=== PATIENT | male | born 1970 | race Caucasian/White ===

== ENCOUNTER 2023-06-18 08:52 | Outpatient (CLI) | payer MEDICARE, SELFPAY ==
--- NOTE | 2023-06-18 10:05 | W.ANESCHARGE ---
Anesthesia Charges Start Date/Time Anesthesia Start Date: 06/18/23 Anesthesia Start Time: 09:30 Stop Date/Time Anesthesia Stop Date: 06/18/23 Anesthesia Stop Time: 10:02
--- NOTE | 2023-06-18 11:44 | W.ANESCHARGE ---
Anesthesia Charges Start Date/Time Anesthesia Start Date: 06/18/23 Anesthesia Start Time: 09:30 Stop Date/Time Anesthesia Stop Date: 06/18/23 Anesthesia Stop Time: 10:02
== END 2023-06-18 08:53 | disposition home or self-care (01) ==
PROVIDERS: PCP Family Medicine; Visit Provider Internal Medicine Gastroenterology
DX: Z12.11 Encounter for screening for malignant neoplasm of colon (principal); K51.50 Left sided colitis without complications
CPT/HCPCS: 00811; 45380; 88305; J2704

== ENCOUNTER 2024-10-14 10:48 | Emergency (ER) | payer OTHER, SELFPAY ==
--- OUTSIDE RECORDS SUMMARY | 2024-10-14 10:51 | XMS_ITS ---
Author Organization [facility] Care Team Providers Care Treadle Cut Off Saw Operator Name Role Phone Olimpia Gaston Unavailable Unavailable Alexi CAR, [facility] Unavailable Unavailable Luis Fernández Unavailable Unavailable Haydee Dudley Unavailable Unavailable Allergies and adverse reactions Code CodeSystem Substance Reaction Severity StartDate Concern Status 72405 RXNORM Lisinopril Unknown 10/22/2018 active Care Team Name Role Address Phone Organization Dates [facility]limpia Gaston [facility] [address] [place] [address], [id number], [place] (Office): [facility] 10/23/2018 - 12/27/2018 [facility] Alexi CAR [place] (Office): [facility] 10/23/2018 - 12/27/2018 Luis Fernández [address], [address], [facility] (Office): : [facility] 10/23/2018 - 12/27/2018 Haydee Dudley [facility] [address] [facility], [place], [address], [place] (Office): [facility] 10/23/2018 - 12/27/2018 Goals Section Goals Description Status Target Date Ability to plan and go on a trip into the community using accessible public transportation. Active 01/28/2019 Adequate hydration, 8-10 glasses of fluid daily Active 01/28/2019 Adhere to prescribed diet Active 2018 Awareness of 7 community leisure resources of in [facility]. Active 01/28/2019 Client will allow staff to perform procedure as ordered/ needed Active 01/28/2019 Client will be continent of bowel and bladder Ac tive 01/28/2019 Client will be resuscitated per MD orders Active 01/28/2019 Client will develop pathfind ing skills around the unit i.e, dining room, bedroom. Active 01/28/2019 Client will improve ability compensate for limia tions. Active 01/28/2019 Client will initiate ADL's a s able and will be accepting of assistance. Active 01/28/2019 Client will verbalize acceptance of life changes . Active 01/28/2019 Client will work with therap y's as ordered to attain the highest practicable level of functioning. Active 01/28/2019 Communicate appropriately withe others Active 01/28/2019 Decreasing number of falls Active 01/28 Demonstrate progressive healing of tissue. Activ e 01/28/2019 Demonstrate steady gait/ balance Active 01/28/2019 Develop a discharge plan Active 019 Develop skills necessary to participate in 5 leisure pursuits independently or with minimal assistance. Active 01/28/2019 Eat single portions at meals Active Free from unnecessary drugs Active 01/04 Have no injury related to medication usage/ side effects Active 01/28/2019 No injuries from falls Active 9 Participant identifies measu res that will increase their rest/sleep. Active 01/28/2019 Participant will demonstrate a knoweldge of risk factors and interventions for preventing skin breakdown. Active 9 Participant will demonstrate an ability to scan the affected visual field to compensate for loss. Active 01/28/2019 Participant will demonstrate appropriate judgement and safety in regards to vulnerabilities to self and others. Active Participant will direct needs to prevent skin br eakdown. Active 01/28/2019 Participant will express that they have adequate rest. Active 01/28/2019 Participant will identify safety hazards in the environment. Active 01/28/2019 Participant will participate in plan to prevent pressure ulcers. Active 01/28/2019 Participant's skin will [place] in intact with no signs/symptoms of irritation. Active 01/28/2019 Participate in 3 community trips each month. Act alex 01/28/2019 Participate in leisure opportunities during unst ructured time. Active 01/28/2019 Participate in prescribed treatment plan to prom ote wound healing. Active 01/28/2019 Perform to highest level of ADLs Active 01/28/2019 Performs activities of daily living without being compromised by pain. Active 01/28/2019 Show improvement in mood/ behavior Active 01/28/2019 Show no signs of hallucinating or delusional thi nking Active 01/28/2019 Show no signs of tremors Active Stable emotional status. Active The client will be able to c ommnicate basic needs on a daily basis. Active 01/28/2019 To show minimal/ no side effects of medications taken Active 01/28/2019 Verbalizes or gives evidence that there is a reduction in the amount of pain. Active 01/28/2019 Verbalizes reasonable comfort. Active 1 03/30/2018 Will demonstrate effective coping stratagies Act alex 01/28/2019 Will increase knoweldge of m edication and make informed decision on continued use. Active 01/28/2019 Will not become injured through next review Acti ve 01/28/2019 Will remain free from s/sx o f hypertension through the review date. Active 01/28/2019 client will remain safe Active 01/29/20 19 wt will maintain between 190 -200#, m eal intakes will be at least 75% of meals, O NS consumption will be at least 75%, s kin will remain intact, l abs will be WNL, w ill maintain adequate hydration status. Active 01/28/2019 Immunizations Immunization Status Vaccine Details Vaccine Code CodeSystem Date Notes Influenza completed Influenza, high-dose, split virus, quadrivalent, injectable, preservative free lotNumber: [id number] expiry: 09/02/2019 Mfg: flulaval quadrivalent Given 0.5 ml Left Deltoid intramuscularly 197 CVX created date: 9 consent date: 9 administe red date: 9 Educated by Ivanna Bains RN on 11/27/2018 Influenza cancelled Influenza, high-dose, split virus, quadrivalent, injectable, preservative free 197 CVX created date: 9 consent date: 9 Pneumovax Dose 1 cancelled created date: 9 consent date: 9 TB 2 Step Mantoux Skin Test completed tuberculin skin test; unspecified formulation lotNumber: [id number] expiry: 08/19/2020 Mfg: [employer] Given 0.1 ml Left Forearm intradermally Step 2 of Multi-step with next step required 98 CVX created date: 9 consent date: 9 administe red date: 9 TB 2 Step Mantoux Skin Test completed tuberculin skin test; unspecified formulation lotNumber: [id number] expiry: 08/19/2020 Mfg: [employer] Given 0.1 ml Left Forearm intradermally Step 1 of Multi-step with next step required 98 CVX created date: 9 consent date: 9 administe red date: 9 No induration or redness noted. Read by Sharonda Spencer RN on 10/25/18 @1830 Medications Section Medication Name Status Code CodeSystem Dose Route Frequency Admin Type Sig Text Start Date End Date Colazal Capsule active 2250 mg Oral as needed PRN Give 2250 mg by mouth as needed for Coliti s Flare- Up three times daily. 2018 - Lidoderm Patch 5 % active 0049177 RXNORM n/a n/a Topical one time a day Routine Apply to painfu l area topica lly one time a day for Pain and remove per schedu le 2018 - Melatonin Tablet active 5 mg Oral at bedtime Routine Give 5 mg by mouth at bedtim e for Insomn ia AND Give 5 mg by mouth as needed for Insomn ia MR x 1 2018 - 5 mg Oral as needed PRN Give 5 mg by mouth at bedtim e for Insomn ia AND Give 5 mg by mouth as needed for Insomn ia MR x 1 2018 - Nystatin Powder active n/a n/a Topical every day and evening shift Routine Apply to affect ed area topica lly every day and evenin g shift for skinca re 2018 - Tylenol Tablet 325 MG active 949070 RXNORM 2 tablet Oral four times a day Routine Give 2 tablet by mouth four times a day for Pain Max acetam inophe n dose: 4000mg /24hrs 2018 - Pravastatin Sodium Tablet active 40 mg Oral at bedtime Routine Give 40 mg by mouth at bedtim e relate d to HEMIPL EGIA AND HEMIPA RESIS FOLLOW ING CEREBR AL INFARC TION AFFECT ING RIGHT DOMINA NT SIDE (I69.3 51) 2018 - Aspirin Tablet Chewable active 81 mg Oral one time a day Routine Give 81 mg by mouth one time a day relate d to HEMIPL EGIA AND HEMIPA RESIS FOLLOW ING CEREBR AL INFARC TION AFFECT ING RIGHT DOMINA NT SIDE (I69.3 51) 2018 - MiraLax Powder active 777241 RXNORM 17 gram Oral as needed PRN Give 17 gram by mouth as needed for Consti pation Daily. 2018 - buPROPion HCl ER (XL) Tablet Extended Release 24 Hour active 300 mg Oral one time a day Routine Give 300 mg by mouth one time a day for ANXIET Y AND DEPRES DEVON 2018 - traZODone HCl Tablet active 25 mg Oral at bedtime Routine Give 25 mg by mouth at bedtim e for insomn ia 2018 - Senokot S Tablet 8.6-50 MG active 2134488 RXNORM 1 tablet Oral two times a day Routine Give 1 tablet by mouth two times a day for Consti pation 2018 - Toprol XL Tablet Extended Release 24 Hour active 50 mg Oral one time a day Routine Give 50 mg by mouth one time a day for hypert ension 2018 - Nystatin Cream 083121 UNIT/GM active 206546 RXNORM n/a n/a Topical two times a day Routine Apply to Sacral area topica lly two times a day for pressu re injury 2018 - Cholecalcifer ol Tablet active 2000 unit Oral one time a day Routine Give 2000 unit by mouth one time a day for vitami n D defici ency 2018 - Culturelle Capsule active 1 capsul e Oral two times a day Routine Give 1 capsul e by mouth two times a day for bowel health 2018 - OLANZapine Tablet active 5 mg Oral two times a day Routine Give 5 mg by mouth two times a day relate d to ADJUST MENT DISORD ER WITH MIXED ANXIET Y AND DEPRES SED MOOD (F43.2 3) 2018 - Mental Status Section Date Assessment Total Score Description 12/27/2018 BIMS 15 cognitively int act CAM 0 No delirium ind icated PHQ-9 03 minimal depress ion 10/30/2018 BIMS 12 moderate cognit alex impairment CAM 0 No delirium ind icated PHQ-9 24 severe depressi on Problems Problem # Description Date of onset Resolved Date Code CodeSystem Concern Status 1 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 [address] active 2 FRONTAL LOBE AND EXECUTIVE FUNCTION DEFICIT FOLLOWING CEREBRAL INFARCTION [address] active 3 ADJUSTMENT DISORDER WITH MIXED ANXIETY AND DEPRESSED MOOD [address] active 4 ANXIETY DISORDER, UNSPECIFIED [address] active 5 ESSENTIAL (PRIMARY) HYPERTENSION [address] active 6 HEMIPLEGIA AND HEMIPARESIS FOLLOWING CEREBRAL INFARCTION AFFECTING LEFT NON-DOMINANT SIDE [address] active 7 HYPOTENSION, UNSPECIFIED [address] active 8 MEMORY DEFICIT FOLLOWING CEREBRAL INFARCTION [address] active 9 MIXED HYPERLIPIDEMIA [address] active 10 OTHER SYMPTOMS AND SIGNS INVOLVING COGNITIVE FUNCTIONS FOLLOWING CEREBRAL INFARCTION [address] active 11 PARAPLEGIA, UNSPECIFIED [address] active 12 TYPE 2 DIABETES MELLITUS WITH HYPERGLYCEMIA [address] active 13 ULCERATIVE COLITIS, UNSPECIFIED, WITHOUT COMPLICATIONS [address] active 14 UNSPECIFIED ABNORMALITIES OF GAIT AND MOBILITY [address] active 15 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 [address] active Reason for Referral No Reasons for Referral Entered Social History Social History Observation Description Start Date End Date Code Code System Current Smoking Status Tobacco smoking consumption unknown 940621919 SNOMED CT Sex Assigned At Male 1970 99947-6 [facility] Gender Identity Vital Signs Code Code System Vitals Name Values and Units Timing Information 20031-3 [facility] Pain Level Value=0.0 12/27/2018 9279-1 [facility] Respiratory Rate Value=18.0 Units=/m in 12/27/2018 8462-4 [facility] Blood Pressure-Diastolic Value=74 Un its=mmHg 12/27/2018 8480-6 [facility] Blood Pressure-Systolic Udcos=843 Un its=mmHg 12/27/2018 8310-5 [facility] Body Temperature Value=97.4 Units= F 12/27/2018 8867-4 [facility] Heart rate Value=94.0 Units=/min 19410-4 [facility] O2 % BldC Oximetry Value=93.0 Units= % 12/27/2018 07357-3 [facility] Weight Dfoyl=824.2 Units=Lbs 8302-2 [facility] Height Value=71.0 Units=Inches 10/24/2018
--- OUTSIDE RECORDS SUMMARY | 2024-10-14 10:51 | XMS_ITS | Clinical Summary ---
Author Organization [facility] Address Formerly [facility] [place] [address] Care Team Providers Care Converting Supervisor Name Role Phone Chicho Clay MD Primary Care Provider Luis Fernández AIR MOTOR REPAIRER Unavailable [phone] Allergies Active Allergy Reactions Criticality Noted Date Comments Lisinopril Cough 02/10/2015 Oxycodone Vomiting 04/23/2020 Medications multivitamin capsule Take 1 Capsule by mouth once daily. 0 021 Active Blood Pressure MonitorIndications :Essential hypertension Use daily to monitor blood pressure. 1 Each 021 Active acetaminophen (TYLENOL EXTRA STRGTH) 500 mg tabletIndications: Closed compression fracture of L1 lumbar vertebra, initial encounter (HC) TAKE 1 TABLET(500 MG) BY MOUTH EVERY 6 HOURS NEEDED. MAX ACETAMINOPHEN DOSE: 4000 MG IN 24 HOURS 270 Tablet 1 022 Active L.acid,para-B.bifi dum-S.therm 8 billion cell cap Take by mouth. Active FreeStyle Radha 3 Plus Sensor for continuous blood glucose monitor (CGM)Indications:T ype 2 diabetes mellitus with hyperglycemia, with long-term current use of insulin (HC) To be used to read blood sugars, follow retail warehouse associate directions. 6 Each 3 Active FreeStyle Radha 3 [place] for continuous blood glucose monitor (CGM)Indications:T ype 2 diabetes mellitus with hyperglycemia, with long-term current use of insulin (HC) To be used to read blood sugars follow retail warehouse associate directions. 1 Each Active Basaglar KwikPen U-100 Insulin 100 unit/mL (3 mL) penIndications:Typ e 2 diabetes mellitus with hyperglycemia, with long-term current use of insulin (HC) Inject 20 units subcutaneous before bedtime. Product desired: BASAGLAR KWIKPEN 15 mL 5 Active Pen Needle 31 gauge x 5/16 (disposable insulin pen needle)Indications :Type 2 diabetes mellitus with hyperglycemia, without long-term current use of insulin (HC) Inject insulin once daily. Remove the 2 covers on the pen needle before administering medication dose. 100 Each Active atenoloL 25 mg tabletIndications: Essential hypertension Take 1 Tablet (25 mg) by mouth once daily. 90 Tablet 1 Active metFORMIN 500 mg Extended-Release tabletIndications: Type 2 diabetes mellitus with hyperglycemia, with long-term current use of insulin (HC) Take 2 Tablets (1,000 mg) by mouth once daily with evening meal. 180 Tablet 1 Active Diaper,Brief, Adult,DisposableIn dications:Acute ischemic right anterior cerebral artery (JOSE) stroke (HC),Incontinence of feces, unspecified fecal incontinence type,Urinary incontinence, unspecified type Uses 2 per day. For home use. 100 Each 025 Active disposable glovesIndications: Acute ischemic right anterior cerebral artery (JOSE) stroke (HC),Incontinence of feces, unspecified fecal incontinence type,Urinary incontinence, unspecified type Large size. For home use. 100 Each 025 Active Incontinence Pad, Liner, Disp padsIndications:Ac bhargavi ischemic right anterior cerebral artery (JOSE) stroke (HC),Incontinence of feces, unspecified fecal incontinence type,Urinary incontinence, unspecified type As directed. Use the pads 3 times a day as needed. 96 Each Active medication order composerIndication s:Acute ischemic right anterior cerebral artery (JOSE) stroke (HC),Incontinence of feces, unspecified fecal incontinence type,Urinary incontinence, unspecified type As directed 1 box. 6 times daily. Cleansing wipes to clean the skin 3 box. 15 025 Active balsalazide 750 mg capsuleIndications :Ulcerative colitis without complications, unspecified location (HC) Take 3 Capsules (2,250 mg) by mouth three times daily. 810 Capsule 2 025 Active lancets (Accu-Chek Softclix Lancets)Indication s:Type 2 diabetes mellitus without complication, without long-term current use of insulin (HC) As directed. Test 1 times per day. 100 Each 3 025 Active blood sugar diagnostic (Accu-Chek Guide test strips) stripIndications:T ype 2 diabetes mellitus without complication, without long-term current use of insulin (HC) Dispense item covered by pt ins. E11.65 NIDDM type II, uncontrolled - Test 1 time/day 100 Each 025 Active hospital bedIndications:Com pression fracture of lumbar vertebra, unspecified lumbar vertebral level, sequela Hospital bed with mattress and 1/2 rails. Semi-electric bed. Length of need 99 months. Bed blending tank helper:no 1 Each 025 Active budesonide (ENTOCORT EC) 3 mg capsuleIndications :Ulcerative rectosigmoiditis without complication (HC),Diarrhea, unspecified type TAKE 3 CAPSULES BY MOUTH EVERY MORNING 84 Capsule 12 025 Active pravastatin (PRAVACHOL) 40 mg tabletIndications: Hyperlipidemia, unspecified hyperlipidemia type Take 1 Tablet (40 mg) by mouth at bedtime. 90 Tablet 2 025 Active aspirin chewable 81 mg tabletIndications: Type 2 diabetes mellitus, without long-term current use of insulin (HC) TAKE 1 TABLET BY MOUTH EVERY MORNING WITH MEAL(S) 28 Tablet 025 Active Epb-V-OobbZmuypzpd ons:Ulcerative rectosigmoiditis without complication (HC) TAKE 1 TABLET BY MOUTH DAILY 28 Tablet 025 Active loperamide (IMODIUM) 2 mg tabletIndications: Chronic diarrhea Take 2 Tablets (4 mg) by mouth each time if needed for Diarrhea. Take 2 tablets (4mg) orally with 1st loose stool, then 1 tablet (2mg) with other loose stools. Max 8 tablets (16 mg) in 24 hrs. 40 Tablet 025 Active buPROPion (WELLBUTRIN XL) 150 mg Extended-Release tabletIndications: Alcohol use disorder, moderate, in early remission (HC) TAKE 1 TABLET(150 MG) BY MOUTH DAILY IN THE MORNING 90 Tablet 025 Active aspirin chewable 81 mg chewable tabletIndications: Uncontrolled type 2 diabetes mellitus, without long-term current use of insulin Take 1 tablet by mouth or nasogastric tube once daily with a meal. 30 tablet. 11/12/19 21 11:38 AM CDT 021 2024 Discontinued budesonide (Entocort EC) 3 mg capsuleIndications :Ulcerative rectosigmoiditis without complication (HC),Diarrhea, unspecified type Take 3 Capsules (9 mg) by mouth once daily in the morning. 90 Capsule 1 025 2024 Discontinued loperamide 2 mg tablet each time if needed for Diarrhea. Take 2 tablets (4mg) orally with 1st loose stool, then 1 tablet (2mg) with other loose stools. Max 8 tablets (16 mg) in 24 hrs. 2024 Discontinued( Reorder (E-cancel not sent)) pravastatin 40 mg tabletIndications: Hyperlipidemia, unspecified hyperlipidemia type Take 1 Tablet (40 mg) by mouth at bedtime. 90 Tablet 1 025 2024 Discontinued buPROPion 150 mg Extended-Release tabletIndications: Alcohol use disorder, moderate, in early remission (HC) TAKE 1 TABLET(150 MG) BY MOUTH DAILY IN THE MORNING 90 Tablet 025 2024 Discontinued Active Problems Problem Noted Date Diagnosed Date Moderate episode of recurrent major depressive d isorder 06/03/2024 Hemiparesis of left nondomin ant side as late effect of cerebral infarction 06/29/2021 Major depressive disorder with current active ep isode 02/05/2019 Closed compression fracture of L1 lumbar vertebra, initial encounter 02/05/2019 Alcohol abuse 11/12/2018 Type 2 diabetes mellitus wit h hyperglycemia, without long-term current use of insulin 10/02/2018 Acute ischemic stroke 09/30/2018 Intractable hiccups 09/20/2018 Acute ischemic left anterior cerebral artery (AC A) stroke 09/17/2018 Acute ischemic right anterior cerebral artery (A CA) stroke 09/17/2018 Adjustment disorder with mixed anxiety and depre ssed mood 10/11/2017 Alcohol use disorder, moderate, in early remissi on 10/11/2017 Sprain of deltoid ligament of right ankle 2017 Closed nondisplaced fracture of middle phalanx of right little finger 07/22/2017 Uncontrolled type 2 diabetes mellitus without complication, without long-term current use of insulin 04/24/2017 Elevated PSA 04/24/2017 Mixed hyperlipidemia 02/18/2015 Colon polyp 10/16/2012 Ulcerative colitis, unspecified 10/04/2011 Overview (06/20/2023): Colonoscopy 06/2023 normal biopsies, ulcerative colitis in remission, repeat in 3 years Anxiety disorder 10/04/2011 ED (erectile dysfunction) 09/08/2011 Tobacco abuse Paraparesis Hyperglycemia Resolved Problems Problem Noted Date Diagnosed Date Resolved Date No active medical problems 12/23/2010 0 06/11/2015 Encounters Date Type Department Care Team Description 10/04/[address] [phone] Chicho Clay MD Refill Request (Bupropion) 10/03/[address] [phone] Chicho Clay MD Refill Request (loperamide) 09/25/[address] [phone] Chicho Clay MD Refill Request (Budesonide, Pravastatin, Aspirin Chewable, Tab-a-krishan) 08/28/[address] [phone] Chicho Clay MD Form 08/21/[address] [phone] Chicho Clay MD Form (detailed prescription form) 08/19/2024 Telephone [facility] [address] [phone] Chicho Clay MD addendum note 08/13/2024 1:30 PM CDT Office Visit [address] [phone] Chicho Clay MD sign orders (Being discharged to Assisted Living) 08/13/2024 Travel 07/14/[address] [phone] Chicho Clay MD Refill Request (Accu-chek Softclix Lancets, Accu-chek Guide Test Strips) from Last 3 Months Immunizations Immunization Administration Dates Next Due COVID-19 vaccine (Moderna 100mcg/0.5mL) RODRICK ARDON 05/12/2020,03/30/2020 COVID-19 vaccine ([employer]-Bio NTech 30mcg/0.3mL) 12YO+ ZACKERY-SUCROSE RODRICK ARDON 06/29/2021 Influenza, High-dose Quadrivalent Inactivated Influenza, IIV3 (Age >=3 years) 12/30/2008 Influenza, IIV4 04/20/2023 Tdap 06/29/2021,06/13/2007 Tuberculin Skin Test, Unspecified 11/02/2018, Zoster (Shingrix-RZV, recombinant) 06/29/2021 Family History Medical History Relation Name Comments Diabetes Brother Cancer Maternal Grandfather Heart Disease Maternal Grandfather Hypertension Maternal Grandfather Stroke Paternal Grandfather Heart Disease Paternal Grandmother Hypertension Paternal Grandmother Relation Name Status Comments Brother Daughter Alive Maternal Grandfather Paternal Grandfather Paternal Grandmother Social History Tobacco Use Types Packs/Day Years Used Date Smoking Tobacco: Every Day Cigarettes 3 15 Passive Smoke Exposure: Current Smokeless Tobacco: Never Tobacco Cessation:Ready to Q uit: Not Asked; Counseling Given: Not Answered Comments:Started smoking at 12 Alcohol Use Standard Drinks/Week Comments No 72 (1 standard drink = 0.6 oz pu re alcohol) PHQ-2 Answer Date Recorded PHQ-2 TOTAL SCORE 2 07/06/2023 Social Connections Answer Date Recorded Do you often feel lonely or isolated from those around you? 0 08/13/2024 Financial Resource Strain Answer Date R ecorded Difficulty of Paying Living Expenses 3 08/13/2024 Difficulty of Paying Living Expenses Not on file 08/13/2024 Food Insecurity Answer Date Recorded Do you worry your food will run out before you are able to buy more? 1 08/13/2024 Transportation Needs Answer Date Record ed Does lack of transportation keep you from medica l appointments? 1 08/13/2024 Does lack of transportation keep you from work, meetings or getting things that you need? 1 08/13/2024 Housing Stability Answer Date Recorded What is your housing situation today? 1 08/13/2024 Interpersonal Safety Answer Date Record ed Are you being hit, kicked, p ushed or yelled at (see row info)? No 01/28/2024 Interpersonal Safety Abuse 12 - 18 Not on file 01/28/2024 Interpersonal Safety Ambulatory Vulnerability No t on file 01/28/2024 Utilities Answer Date Recorded Do you have trouble paying f or utilities (for example, heat, electricity, water, phone)? 1 08/13/2024 Sex and Gender Information Value Date Recorded Sex Assigned at Not on file Legal Sex Male 5:23 AM SHOP ROUTER Gender Identity Not on file Sexual Orientation Not on file Occupation Industry Job Start Date Job End Date Not on file Not on file Not on file Not on file Not on file Not on file Not on file Not on file Obstetrics History Last Filed Vital Signs Vital Sign Reading Time Taken Comments Blood Pressure 114/70 08/13/2024 1:47 PM CDT Pulse 95 08/13/2024 1:47 PM CDT Temperature 36.8 C (98.2 F) 01/28/2024 9:05 PM SHOP ROUTER Respiratory Rate 19 01/28/2024 9:05 PM SHOP ROUTER Oxygen Saturation 95% 08/13/2024 1:47 PM CDT Inhaled Oxygen Concentration - - Weight 93.8 kg (206 lb 11.2 oz) 08/13/2024 1:47 PM CDT Height 182.9 cm (6') 08/13/2024 1:47 PM CDT Body Mass Index 28.03 08/13/2024 1:47 PM CDT Plan of Treatment Health Maintenance Due Date Last Done Comments HIV for age 15-65 1984 Hepatitis C screening for ag e 18-79 05/23/1987 Hepatitis B series for 19+ ( 1 of 3 - 19+ 3-dose series) 1988 Pneumococcal series for age 50+ (1 of 2 - PCV) [address] (for lung CA) ag e 50-80 05/23/2019 02/04/2019, 11/13/2013 Zoster (shingles) series for age 50+ (2 of 2) 08/24/2021 06/29/2021 COVID-19 vaccine series (2023- season) 2023 06/29/2021, 05/12/2020, 03/30/2020 Depression screening for age 12+ 07/05/2024 07/06/2023, 07/06/2023, 07/06/2023, Additional history exists Influenza Vaccine (#1) 2024 04/20/2023, 2008 BMI (ht and wt on same day) for age 18+ 08/13/2025 08/13/2024, 06/03/2024, 07/06/2023, Additional history exists Colonoscopy through age 75 06/17/202606/17, 06/18/2023, 01/04/2018, Additional history exists Lipids for age 45-75 06/03/2029 06/03/2024, 04/20/2023, 10/09/2022, Additional history exists Tetanus booster 06/30/2031 06/29/2021, 06/13/2007 Procedures Procedure Name Priority Date/Time Associated Diagnosis Comments QUANTIFERON -TB GOLD PLUS 1 TUBE ([facility]) Routine 08/13/2024 2:32 PM CDT Type 2 diabetes mellitus without complication, without long-term current use of insulin (HC) Hemiparesis of left nondominant side as late effect of cerebral infarction (HC) HEMOGLOBIN A1C STAT 08/13/2024 2:28 PM CDT Type 2 diabetes mellitus with hyperglycemia, without long-term current use of insulin (HC) LIPID PANEL W REFLEX MEASURED LDL Routine 06/03/2024 3:47 PM CDT Hyperlipidemia, unspecified hyperlipidemia type COLONOSCOPY SCREENING Routine 06/18/2023 12:00 AM CDT Ulcerative colitis without complications, unspecified location (HC) CT CHEST ABDOMEN PELVIS WO STAT 02/04/2019 10:43 PM SHOP ROUTER from Last 3 Months or Most Recently Relevant to Health Maintenance Results * QUANTIFERON??-TB GOLD PLUS 1 TUBE ([facility]) (08/13/2024 2:32 PM CDT) Pathologist [facility] QUANTIFERON(R)-T B GOLD PLUS, 1 TUBE NEGATIVE NEGATIVE [facility] Comment: Negative test result. M. tuberculosis complex infection unlikely. NIL 0.02 IU/mL [facility] MITOGEN-NIL 8.61 IU/mL [facility] TB1-NIL 0.04 IU/mL [facility] TB2-NIL 0.05 IU/mL [facility] Comment: The Nil tube value reflects the background interferon gamma immune response of the patient's blood sample. This value has been subtracted from the patient's displayed TB and Mitogen results. Lower than expected results with the Mitogen tube prevent false-negative Quantiferon readings by detecting a patient with a potential immune suppressive condition and/or suboptimal pre-analytical specimen handling. The TB1 Antigen tube is coated with the M. tuberculosis-specific antigens designed to elicit responses from TB antigen primed CD4+ helper T-lymphocytes. The TB2 Antigen tube is coated with the M. tuberculosis-specific antigens designed to elicit responses from TB antigen primed CD4+ helper and CD8+ cytotoxic T-lymphocytes. For additional information, please refer to https://education.[employer]Box[employer]/faq/YEV100 (This link is being provided for informational/ educational purposes only.) Blood BLOOD SPECIMEN / Unknown 08/13/2024 2:32 PM CDT 08/13/2024 2:32 PM CDT Narrative [facility] - 08/16/2024 10:17 AM CDT FASTING:NO FASTING: NO Chicho Clay MD SEND OUTS Final Resul t [facility] [address] [place] [address], [facility] [address] [place] [address] * (ABNORMAL) STAT Hemoglobin A1C (08/13/2024 2:28 PM CDT) HEMOGLOBIN A1C SCREENING 7.7(H) <=6.4 % 08/13/2024 3:06 PM CDT [facility] Blood BLOOD SPECIMEN / Unknown [facility] / Unknown 08/13/2024 2:28 PM CDT 08/13/2024 2:28 PM CDT [facility] - 08/13/2024 3:06 PM CDT (<5.7%) Normal (5.7% to 6.4%) Indicates prediabetes (>=6.5%) Confirms diabetes Falsely low levels may be seen with: Recent Transfusion, Recent Significant Blood Loss, Hemolytic Diseases, or Falsely elevated levels may be seen with: Untreated Anemias, Splenectomy us Chicho Clay MD CHEMISTRY Final Resul t [facility] [address] [place] [address] * (ABNORMAL) LIPID PANEL W REFLEX MEASURED LDL (06/03/2024 3:47 PM CDT) CHOLESTEROL, TOTAL 160 <200 mg/dL [facility] HDL CHOLESTEROL 35(L) > OR = 40 mg/dL [facility] TRIGLYCERIDES 134 <150 mg/dL [facility] LDL-CHOLESTEROL 102(H) mg/dL (calc) [facility] Comment: Reference range: <100 Desirable range <100 mg/dL for primary prevention; <70 mg/dL for patients with CHD or diabetic patients with > or = 2 CHD risk factors. LDL-C is now calculated using the Jesus-Malhotra calculation, which is a validated novel method providing better accuracy than the Friedewald equation in the estimation of LDL-C. Jesus SS et al. MARKEL. 2013;310(33): 4277-8096 (http://education.Xanga/faq/QJG544) CHOL/HDLC RATIO 4.6 <5.0 (calc) [facility] NON HDL CHOLESTEROL 125 <130 mg/dL (calc) [facility] Comment: For patients with diabetes plus 1 major ASCVD risk factor, treating to a non-HDL-C goal of <100 mg/dL (LDL-C of <70 mg/dL) is considered a therapeutic option. Blood BLOOD SPECIMEN / Unknown 06/03/2024 3:47 PM CDT 06/03/2024 3:49 PM CDT Chicho Clay MD CHEMISTRY Final Resul t [employer] [address] [address], [employer] [address] * COLONOSCOPY SCREENING (06/18/2023 12:00 AM CDT) Chicho Clay MD GI PROCEDURE ORD Final Resu lt * CT CHEST ABDOMEN PELVIS WO (02/04/2019 10:43 PM SHOP ROUTER) Anatomical Region Laterality Modality Abdomen, Pelvis, AORTA, LIVER, SPLEEN Computed Tomography 02/04/2019 11:4 9 PM SHOP ROUTER Narrative 02/04/2019 11:49 PM SHOP ROUTER INDICATION: Fall, low back pain TECHNIQUE: CT chest, abdomen and pelvis acquired without IV contrast. COMPARISON: None FINDINGS: Chest: Cardiovascular structures: Heart size is normal. Thoracic aorta and main pulmonary artery are normal in caliber. Mediastinum and luis alberto: Right hilar and infrahilar calcified lymph nodes. Lungs: Clear. Pleura and pericardium: No effusions. Chest wall and axilla: No mass or adenopathy. Bones: Unremarkable for age. Abdomen and Pelvis: Liver: Unremarkable. Spleen: Unremarkable. Pancreas: Unremarkable. Gallbladder and bile ducts: Small probable gallstones versus sludge. Kidneys: Unremarkable. Adrenal glands: Unremarkable. GI tract: Unremarkable. Appendix is normal. Vascular structures: Unremarkable. Lymph nodes: Unremarkable. Miscellaneous: Unremarkable. No free air or significant free fluid. Pelvic Organs: Unremarkable. Bones: Moderate L1 superior and inferior endplate compression fractures without evidence of retropulsion. IMPRESSION: Moderate L1 superior and inferior endplate compression fractures with out evidence of retropulsion. The remainder of the exam is atraumatic in appearance. Please note that all CT scans at this facility use dose modulation, iterative reconstruction, and/or weight-based dosing when appropriate to reduce radiation dose to as low as reasonably achievable. Dictated by Armen Warren MD @ Feb 04 2019 11:10PM Signed by Dr. Armen Warren @ Feb 04 2019 11:49PM Procedure Note Armen Warren MD - 02/04/2019 INDICATION: Fall, low back pain TECHNIQUE: CT chest, abdomen and pelvis acquired without IV contrast. COMPARISON: None FINDINGS: Chest: Cardiovascular structures: Heart size is normal. Thoracic aorta and mainpulmonary artery are normal in caliber. Mediastinum and luis alberto: Right hilar and infrahilar calcified lymph nodes. Lungs: Clear. Pleura and pericardium: No effusions. Chest wall and axilla: No mass or adenopathy. Bones: Unremarkable for age. Abdomen and Pelvis: Liver: Unremarkable. Spleen: Unremarkable. Pancreas: Unremarkable. Gallbladder and bile ducts: Small probable gallstones versus sludge. Kidneys: Unremarkable. Adrenal glands: Unremarkable. GI tract: Unremarkable. Appendix is normal. Vascular structures: Unremarkable. Lymph nodes: Unremarkable. Miscellaneous: Unremarkable. No free air or significant free fluid. Pelvic Organs: Unremarkable. Bones: Moderate L1 superior and inferior endplate compression fractureswithout evidence of retropulsion. IMPRESSION: Moderate L1 superior and inferior endplate compression fractures with outevidence of retropulsion. The remainder of the exam is atraumatic in appearance. Please note that all CT scans at this facility use dose modulation,iterative reconstruction, and/or weight-based dosing when appropriate toreduce radiation dose to as low as reasonably achievable. Dictated by Armen Warren MD @ Feb 04 2019 11:10PM Signed by Dr. Armen Warren @ Feb 04 2019 11:49PM Meli White MD CT Final Resu lt from Last 3 Months or Most Recently Relevant to Health Maintenance Insurance [address] [place] [address] MEDICARE PART B HB ONLY MEDICARE ADVANTAGE [place] [id number] [place] [id number] * Guarantor: YURIY [place] Account Type Relation to Patient Date of Phone Billing Address [facility] [address] [place] [address] [place] [id number] Advance Directives Documents on File Type Date Recorded Patient Bariatric Surgeon Expl anation POL 02/04/2019 12:00 AM * Full Code (Latest Code Status on File) Date Activated Date Inactivated Comments 02/05/2019 2:25 AM 02/05/2019 6:22 PM * Full Code Date Activated Date Inactivated Comments 09/30/2018 1:50 PM 10/23/2018 1:10 PM Question Answer Comments Code Status Discussion: Per Existing Order * Full Code Date Activated Date Inactivated Comments 09/17/2018 9:41 AM 09/30/2018 1:07 PM * Full Code Date Activated Date Inactivated Comments 01/04/2018 6:51 AM 01/04/2018 11:52 AM Question Answer Comments Code Status Discussion: Discussed * Full Code Date Activated Date Inactivated Comments 10/10/2017 8:32 PM 10/11/2017 8:40 PM Question Answer Comments Code Status Discussion: Not Discussed Care Teams Converting Supervisor Relationship Specialty Start Date End Date Chicho Clay MD [address] [place] [address] PCP - General Family Practice 10/02/11 Luis Fernández NP [address] [place] [address] Nurse Practitioner Nurse Practitioner 10/31/18
[2024-10-14 11:03] VITALS: BP 144/93; PULSE 100; RESP 18; TEMP 37.1; O2SAT 100; BMI 28.3
--- NOTE | 2024-10-14 11:21 | CRLHL7_ITS ---
For Patients: As a result of the Century Cures Act, medical imaging exams and procedure reports are released immediately into your electronic medical record. You may view this report before your referring provider. If you have questions, please contact your health care provider. INDICATION: Upper tooth pain, possible abscess . TECHNIQUE: CT soft tissue of the neck was acquired with 103 cc of Isovue 370 contrast. COMPARISON: CT soft tissue neck November 13, 2013 FINDINGS: Multiple dental caries. Streak artifacts from dental amalgam limits detailed assessment. Periapical abscess along the left maxillary 2nd premolar with erosion of the buccal cortex of the maxilla. There is small adjacent buccal abscess measuring 14 mm (seen on 05/30). Moderate left pre maxillary as well as lower facial soft tissue swelling. Few reactive level 1 group of lymph nodes. Bilateral jugular veins are patent. Less than a centimeter sized hypodense Small nodule in the thyroid gland, likely goitrous related changes. Minimal mucosal thickening in the left maxillary sinus. No mastoid effusion. Included lung nails are clear. IMPRESSION: 1. Multiple dental caries. Dental consultation is recommended. 2. Periapical abscess along the left maxillary 2nd premolar tooth causing erosion of buccal cortex of the maxilla with small adjacent buccal abscess. 3. Moderate left pre maxillary and lower facial soft tissue swelling. Please note that all CT scans at this facility use dose modulation, iterative reconstruction, and/or weight-based dosing when appropriate to reduce radiation dose to as low as reasonably achievable. Dictated by Gracia Nicolas MD @ 10/14/2024 1:55:19 PM (Electronically Signed)
--- NOTE | 2024-10-14 11:23 | ED.GENADULT ---
HPI - General Adult General Date Seen: 10/14/24 Chief complaint: Dental/Oral/Mouth Injury/Pain Stated complaint: possible tooth infection Time Seen by Provider: 10/14/24 11:20 History of Present Illness HPI narrative: 54-year-old male who is a resident of [facility] presenting to the ER today with left upper tooth pain and left cheek swelling. He has a past medical history of ulcerative colitis and is on mesalamine and oral budesonide for that (no other immunosuppressive, and has a history of stroke with chronic left-sided weakness, on aspirin but no other anticoagulants. He also has a history of anxiety, hyperlipidemia, type 2 diabetes, adjustment disorder with mixed anxiety and depression, alcohol dependence in remission, tobacco use,). Patient reports that he has bad teeth that he had been working at the dentist a couple of years ago. The dentist was in [place]. He does not recall the name of the dentist or clinic. They apparently extracted several of his teeth. He says most of the teeth in his upper jaw and lower jaw have been removed. He says about a year and half ago he is on his care plan that they had plans to extract 9 more teeth. He thought they had already been extracted so he ?lost grayson and confidence? in his dentist and refused to see them. He has not seen a dentist now in about 18 months. He has not really had a lot of tooth pain lately. He says when he woke up this morning he had left upper tooth pain and significant swelling of his left cheek. This happened spontaneously overnight. There is no recent pain. No recent dental fracture or injury. He is not running a fever. No trouble swallowing. No pain radiating down to his neck. No trouble with his vision. No trauma to his cheek. Related Data Home Medications ?Medication ?Instructions ?Recorded ?Confirmed aspirin 81 mg chewable tablet 1 tab PO DAILY 10/14/24 10/14/24 atenolol 25 mg tablet 25 mg PO DAILY 10/14/24 10/14/24 balsalazide 750 mg capsule 2,250 mg PO 3XD 10/14/24 10/14/24 budesonide 3 mg 9 mg PO DAILY 10/14/24 10/14/24 capsule,delayed,extended release bupropion HCl 150 mg 24 hr tablet, 150 mg PO DAILY 10/14/24 10/14/24 extended release cholecalciferol (vitamin D3) 25 50 mcg PO DAILY 10/14/24 10/14/24 mcg (1,000 unit) tablet metformin 500 mg tablet,extended 500 mg PO BID 10/14/24 10/14/24 release 24 hr pravastatin 40 mg tablet 40 mg PO DAILY 10/14/24 10/14/24 Previous Rx's ?Medication ?Instructions ?Recorded clindamycin HCl 300 mg capsule 300 mg PO TID #30 caps 10/14/24 hydrocodone 5 mg-acetaminophen 325 1 tab PO Q6H PRN pain #10 tabs 10/14/24 mg tablet Allergies Allergy/AdvReac Type Severity Reaction Status Date / Time lisinopril Allergy Cough Verified 10/14/24 12:39 oxycodone (From OxyContin) Allergy Vomiting Verified 10/14/24 12:39 PFSH PFSH Social History Smoking Status: Current every day smoker How often do you have a drink containing alcohol: never AUDIT-C Alcohol total score: 0 Non-prescribed substance use: denies use Exam Narrative: Exam Narrative: Constitutional: Appears well-developed and well-nourished. Alert. Conversant. Cooperative. Non toxic. HENT: Head: Atraumatic. Nose: Nose normal. He has swelling and induration of the cheek from the maxilla about snf down the buccal space. It is quite indurated and tender but hard to say if there is any fluctuance or not. No crepitus. He is status post extraction of multiple teeth. It looks like he has had teeth 1, 3, 4, 5 extracted. On the left maxilla it looks like he has at least 4 or 5 teeth that are broken off down to the gumline. Hard to identify which teeth are present. It looks like he has probably have his wisdom tooth extracted so these are probably teeth 15, 14, 13, 12, and possibly tooth 11. There is some induration of the gums adjacent to those upper teeth but no definite palpable gingival abscess that would be drainable. The left gums are tender. Adjacent to that there is significant induration and swelling of the left cheek and buccal space. No trismus. Lower teeth and submandibular tissues are normal. Tongue normal. Pharynx normal. Mouth/Throat: Oral mucosa is clear and moist. no trismus. Pharynx normal. Tonsils symmetric. No tonsillar enlargement, erythema, or exudate. Eyes: Conjunctivae normal. EOM normal. Pupils equal, round, and reactive to light. No scleral icterus. Neck: Normal range of motion. Neck supple. No tracheal deviation present. No tracheal shift. Tissues are soft and non indurated. Cardiovascular: Normal rate, regular rhythm. No gallop. No friction rub. No murmur heard. Pulmonary/Chest: Effort normal. No stridor. No respiratory distress. No wheezes. No rales. No rhonchi . Musculoskeletal: RUE: Normal range of motion. No tenderness. No deformity LUE: Normal range of motion. No tenderness. No deformity RLE: Normal range of motion. No edema. No tenderness. No deformity LLE: Normal range of motion. No edema. No tenderness. No deformity Lymph: No cervical adenopathy. Neurological: Alert and oriented to person, place, and time. Normal strength. CN II-VII intact. No sensory deficit. GCS eye subscore is 4. GCS verbal subscore is 5. GCS motor subscore is 6. Normal coordination Skin: Skin is warm and dry. No rash noted. No pallor. Normal capillary refill. Psychiatric: Normal mood. Normal affect. Const: Vital Signs, click to edit/add: Vital Signs - 24 hr 10/14/24 11:03 10/14/24 15:03 Temperature 98.7 F 98.2 F Pulse Rate [Pulse Oximeter] 100 80 Respiratory Rate 18 18 Blood Pressure [Ri ght Upper Arm] 144/93 H 127/77 Pulse Oximetry 100 94 Oxygen Delivery Me thod Room Air Room Air Course Vital Signs Vital signs: Initial Vital Signs Temperature 98.7 F 10/14/24 11:03 Temperature Source Temporal Artery Scan 10/14/24 11:03 Pulse Rate 100 10/14/24 11:03 Respiratory Rate 18 10/14/24 11:03 Blood Pressure 144/93 H 10/14/24 11:03 Blood Pressure Mean 110 H 10/14/24 11:03 Pulse Oximetry 100 10/14/24 11:03 Oxygen Delivery Method Room Air 10/14/24 11:03 Vital Signs Temperature 98.7 F 10/14/24 11:03 Pulse Rate 100 10/14/24 11:03 Respiratory Rate 18 10/14/24 11:03 Blood Pressure 144/93 H 10/14/24 11:03 Pulse Oximetry 100 10/14/24 11:03 Oxygen Delivery Method Room Air 10/14/24 11:03 Temperature 98.2 F 10/14/24 15:03 Pulse Rate 80 10/14/24 15:03 Respiratory Rate 18 10/14/24 15:03 Blood Pressure 127/77 10/14/24 15:03 Pulse Oximetry 94 10/14/24 15:03 Oxygen Delivery Method Room Air 10/14/24 15:03 Medications Administered Medications: Discontinued Medications Generic Name Dose Route Start Last Admin Trade Name Vincent PRN Reason Stop Dose Admin Clindamycin Phosphate 900 mg in 50 mls @ 100 mls/hr 10/14/24 11:23 10/14/24 13:26 Clindamycin 900 Mg/50 Ml-D5w IVPB 10/14/24 11:52 Infused ONCE ONE Infusion Ketorolac Tromethamine 15 mg 10/14/24 12:17 10/14/24 12:34 Ketorolac 15 Mg/Ml Inj IVP 10/14/24 12:18 15 mg ONCE ONE Administration Medical Decision Making [facility] Narrative Medical decision making narrative: 54-year-old gentleman with a history of type 2 diabetes and ulcerative colitis on mesalamine and oral budesonide presenting to the ER today with acute onset of left upper tooth pain and left cheek swelling. Presentation is suggestive for a odontogenic infection that is spreading into the left side of the face. This appears to be coming from the upper teeth and not the lower teeth. No evidence for any evolving Audie's angina or any signs of involving airway compromise. Concern here is to determine whether not this is a tooth infection with a facial cellulitis or if there is actually a buccal space abscess that will require surgical drainage. Labs and CT imaging are obtained and shows no evidence for large buccal abscess but may show a small periapical abscess adjacent to the premolar on the left maxilla. On repeat clinical exam I still do not see any evidence for a drainable abscess in the gums. Older he is afebrile but does have a white count of 17. He is treated with IV clindamycin here in the ER for dental infection with facial cellulitis. At this point there is no signs of any evolving airway compromise. At this point reasonable clinical judgment EKG safe for discharge with antibiotics. Will put him on clindamycin 300 t.i.d.. He will need to see dentist within 1-2 days. Precautions for return to the ER reviewed. Questions answered. Written discharge instructions and return precautions reviewed with the patient prior to discharge. Lab Data Labs: Lab Results 10/14/24 Range/Units 11:40 WBC 17.62 H (4.50-11.00) K/uL RBC 5.20 (4.30-5.90) m/uL Hgb 15.3 (13.5-17.5) gm/dL Hct 45.8 (37.0-53.0) % MCV 88 (80-100) fL MCH 29 (26-34) pg MCHC 33 (32-36) gm/dL RDW Coeff of Shawn 14.4 (11.5-15.5) % Plt Count 357 (140-440) K/uL Neut % (Auto) 76.3 H (42.0-72.0) % Lymph % (Auto) 13.8 L (20-44) % Mayes % (Auto) 8.3 (0.0-11.0) % Eos % (Auto) 0.6 (0.0-7.0) % Baso % (Auto) 0.3 (0.0-3.0) % Neut # (Auto) 13.40 H (1.7-7.0) K/uL Lymph # (Auto) 2.40 (0.90-2.90) K/uL Mayes # (Auto) 1.50 H (0.00-0.90) K/UL Eos # (Auto) 0.10 (0.00-0.50) K/uL Baso # (Auto) 0.10 (0.00-0.30) K/uL Abs Immat Gran (auto) 0.10 (0.00-0.30) K/uL Imm/Tot Granulo (auto) 0.7 % Sodium 138 (135-149) mmol/L Potassium 4.1 (3.6-5.1) mmol/L Chloride 102 (96-114) mmol/L Carbon Dioxide 26 (20-32) mmol/L Anion Gap 10 (7-15) mEq/L BUN 14 (7-30) mg/dL Creatinine 0.7 (0.5-1.5) mg/dL Estimated Creat Clear 130.87 Estimated GFR 109 ml/min Glucose 312 H (60-115) mg/dL Calcium 9.6 (8.4-10.6) mg/dL Imaging Data CT neck soft tissue: Attestation: I have reviewed the pertinent imaging results. Radiologist's impression: IMPRESSION: 1. Multiple dental caries. Dental consultation is recommended. 2. Periapical abscess along the left maxillary 2nd premolar tooth causing erosion of buccal cortex of the maxilla with small adjacent buccal abscess. 3. Moderate left pre maxillary and lower facial soft tissue swelling. Discharge Plan Discharge Clinical Impression: Dental abscess, Facial cellulitis Patient Disposition: Home, Self-Care Instructions: Dental Abscess (ED), Cellulitis (ED) Additional Instructions: As we discussed, please use Tylenol or ibuprofen if needed for pain. Use the prescription pain killer ([place]) if needed if you are having pain uncontrolled by other medications. Be careful because [place] can cause dizziness, drowsiness, constipation, nausea, and can be addictive. Please take your next dose of antibiotic this evening and the starting tomorrow take it 3 times per day. Monitor the area of swelling on your cheek. If you notice worsening swelling, swelling inside your mouth, trouble chewing or trouble swallowing, trouble breathing, high fever, or if you are having any other problems, please come back to the ER right away. Please follow-up with the dentist tomorrow for a recheck. Call your dental insurance to find out who is in network and arrange her dentist appointment. Unfortunately, we do not have a dentist on staff here at [facility]. Prescriptions: New clindamycin HCl 300 mg capsule 300 mg PO TID Qty: 30 0RF hydrocodone-acetaminophen 5-325 mg tablet 1 tab PO Q6H PRN (Reason: pain) Qty: 10 0RF No Action pravastatin 40 mg tablet 40 mg PO DAILY atenolol 25 mg tablet 25 mg PO DAILY balsalazide 750 mg capsule 2,250 mg PO 3XD aspirin 81 mg tablet,chewable 1 tab PO DAILY budesonide 3 mg capsule,delayed,extend.release 9 mg PO DAILY metformin 500 mg tablet extended release 24 hr 500 mg PO BID bupropion HCl 150 mg tablet extended release 24 hr 150 mg PO DAILY cholecalciferol (vitamin D3) 25 mcg (1,000 unit) tablet 50 mcg PO DAILY Follow Up/Referrals: Chicho Clay MD [Primary Care Provider, Family Practice] Stand Alone Forms: [facility] Info Instructions
--- OUTSIDE RECORDS SUMMARY | 2024-10-14 11:31 | XMS_ITS ---
Author Organization [facility] Care Team Providers Care Security Advisor Name Role Phone Olimpia Gaston Unavailable Unavailable Alexi CAR, [facility] Unavailable Unavailable Luis Fernández Unavailable Unavailable Haydee Dudley Unavailable Unavailable Allergies and adverse reactions Code CodeSystem Substance Reaction Severity StartDate Concern Status 99236 RXNORM Lisinopril Unknown 10/22/2018 active Care Team Name Role Address Phone Organization Dates [facility] Gaston [facility] [address] [place] [address], [address], [place] (Office): [facility] 10/23/2018 - 12/27/2018 [facility] Alexi CAR [place] (Office): [facility] 10/23/2018 - 12/27/2018 Luis Fernández [address], [address], [facility] (Office): : [facility] 10/23/2018 - 12/27/2018 Haydee Dudley [facility] [address], [place], [address], [place] (Office): [facility] 10/23/2018 - 12/27/2018 Goals Section Goals Description Status Target Date Ability to plan and go on a trip into the community using accessible public transportation. Active 01/28/2019 Adequate hydration, 8-10 glasses of fluid daily Active 01/28/2019 Adhere to prescribed diet Active 2018 Awareness of 7 community leisure resources of in [facility]. Active 01/28/2019 Client will allow staff [...] completed tuberculin skin test; unspecified formulation lotNumber: [id number] expiry: 08/19/2020 Mfg: [employer] Given 0.1 ml Left Forearm intradermally Step 2 of Multi-step with next step required 98 CVX created date: 9 consent date: 9 administe red date: 9 TB 2 Step Mantoux Skin Test completed tuberculin skin test; unspecified formulation lotNumber: [id number] expiry: 08/19/2020 Mfg: [employer] Given [...] 2018 - Lidoderm Patch 5 % active 2210455 RXNORM n/a n/a Topical one time a [...] 2018 - Tylenol Tablet 325 MG active 687410 RXNORM 2 tablet Oral four times a [...] (I69.3 51) 2018 - MiraLax Powder active 057946 RXNORM 17 gram Oral as needed PRN [...] - Senokot S Tablet 8.6-50 MG active 8922094 RXNORM 1 tablet Oral two times a day Routine Give 1 tablet by mouth two times a day for Consti pation 2018 - Toprol XL Tablet Extended Release 24 Hour active 50 mg Oral one time a day Routine Give 50 mg by mouth one time a day for hypert ension 2018 - Nystatin Cream 424419 UNIT/GM active 566612 RXNORM n/a n/a Topical two times a [...] AND CONCENTRATION DEFICIT FOLLOWING CEREBRAL INFARCTION [address] active 2 FRONTAL LOBE AND EXECUTIVE FUNCTION DEFICIT FOLLOWING CEREBRAL INFARCTION [address] active 3 ADJUSTMENT DISORDER WITH MIXED ANXIETY AND DEPRESSED MOOD [address] active 4 ANXIETY DISORDER, UNSPECIFIED [address] active 5 ESSENTIAL (PRIMARY) HYPERTENSION [address] active 6 HEMIPLEGIA AND HEMIPARESIS FOLLOWING CEREBRAL INFARCTION AFFECTING LEFT NON-DOMINANT SIDE [address] active 7 HYPOTENSION, UNSPECIFIED [address] active 8 MEMORY DEFICIT FOLLOWING CEREBRAL INFARCTION [address] active 9 MIXED HYPERLIPIDEMIA [address] active 10 OTHER SYMPTOMS AND SIGNS INVOLVING COGNITIVE FUNCTIONS FOLLOWING CEREBRAL INFARCTION [address] active 11 PARAPLEGIA, UNSPECIFIED [address] active 12 TYPE 2 DIABETES MELLITUS WITH HYPERGLYCEMIA [address] active 13 ULCERATIVE COLITIS, UNSPECIFIED, WITHOUT COMPLICATIONS [address] active 14 UNSPECIFIED ABNORMALITIES OF GAIT AND MOBILITY [address] active 15 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 [address] active Reason for Referral No Reasons for Referral Entered Social History Social History Observation Description Start Date End Date Code Code System Current Smoking Status Tobacco smoking consumption unknown 921446181 SNOMED CT Sex Assigned At Male 1970 53776-2 [facility] Gender Identity Vital Signs Code Code System Vitals Name Values and Units Timing Information 56022-9 [facility] Pain Level Value=0.0 12/27/2018 9279-1 [facility] Respiratory Rate Value=18.0 Units=/m in 12/27/2018 8462-4 [facility] Blood Pressure-Diastolic Value=74 Un its=mmHg 12/27/2018 8480-6 [facility] Blood Pressure-Systolic Llgdu=904 Un its=mmHg 12/27/2018 8310-5 [facility] Body Temperature Value=97.4 Units= F 12/27/2018 8867-4 [facility] Heart rate Value=94.0 Units=/min 55042-5 [facility] O2 % BldC Oximetry Value=93.0 Units= % 12/27/2018 12154-5 [facility] Weight Pyjmi=752.2 Units=Lbs 8302-2 [facility] Height Value=71.0 Units=Inches 10/24/2018
[2024-10-14] MEDS: CLINDAMYCIN 900 MG/50 ML-D5W 900 MG/50 ML PIGGYBACK 100 MG IVPB (11:33)
[2024-10-14 11:48] LABS: Hematocrit 45.8 % (37.0-53.0); Hemoglobin* 15.3 gm/dL (13.5-17.5); Immature Granulocytes Pct Auto 0.7 %; Mean Corpuscular HGB Conc 33 gm/dL (32-36); Mean Corpuscular Hemoglobin 29 pg (26-34); Mean Corpuscular Volume 88 fL (80-100); RDW Coefficient of Variation % 14.4 % (11.5-15.5); Red Blood Count 5.20 m/uL (4.30-5.90); White Blood Count* 17.62 K/uL (4.50-11.00)
[2024-10-14 11:49] LABS: Immature Granulocytes Abs Auto 0.10 K/uL (0.00-0.30); Lymphocytes Absolute Auto 2.40 K/uL (0.90-2.90); Slide Review Reflex No
--- OUTSIDE RECORDS SUMMARY | 2024-10-14 11:50 | XMS_ITS | CCD ---
Author Organization Unknown Care Team Providers Care Casing Operator Name Role Phone Supervisor [employer], [place] Primary Care Provider Unava ilable Unavailable Chronic Care Management Unavaila ble Summary Purpose DataExchange Insurance Providers Payer name Policy type / Coverage type Covered republican ID Effective Begin Date Effective End Date [place] Medicare Part B [id number] Unknown Unknown [employer] Medicare Part B [id number] Unknown Unknown Family History Family History data not found Medication Administered No Medication Administered data Reason For Visit No Reason For Visit data
[2024-10-14 12:03] LABS: Chloride* 102 mmol/L (96-114); Sodium* 138 mmol/L (135-149)
[2024-10-14 12:04] LABS: Potassium* 4.1 mmol/L (3.6-5.1)
[2024-10-14 12:07] LABS: Anion Gap 10 mEq/L (7-15); Blood Urea Nitrogen* 14 mg/dL (7-30); Calcium* 9.6 mg/dL (8.4-10.6); Carbon Dioxide* 26 mmol/L (20-32); Creatinine* 0.7 mg/dL (0.5-1.5); Est. Creatinine Clearance* 130.87; Estimated Glomerular Filt Rate 109 ml/min; Glucose* 312 mg/dL (60-115)
--- OUTSIDE RECORDS SUMMARY | 2024-10-14 12:31 | XMS_ITS | CCD ---
Author Organization Unknown Care Team Providers Care Research Project Manager Name Role Phone [employer] [place], [place] Primary Care Provider Unava ilable Unavailable Chronic Care Management Unavaila ble Summary Purpose DataExchange Insurance Providers Payer name Policy type / Coverage type Covered green party ID Effective Begin Date Effective End Date [place] Part B [id number] Unknown Unknown [employer] Medicare Part B [id number] Unknown Unknown Family History Family History data not found Medication Administered No Medication Administered data Reason For Visit No Reason For Visit data
--- OUTSIDE RECORDS SUMMARY | 2024-10-14 12:31 | XMS_ITS | CCD ---
Author Organization Unknown Care Team Providers Care Theater Teacher Name Role Phone Client Success Director, [place] Primary Care Provider Unava ilable Unavailable Chronic Care Management Unavaila ble Summary Purpose DataExchange Insurance Providers Payer name Policy type / Coverage type Covered green party ID Effective Begin Date Effective End Date [place] Part B [id number] Unknown Unknown [employer] Medicare Part B [id number] Unknown Unknown Family History Family History data not found Medication Administered No Medication Administered data Reason For Visit No Reason For Visit data
[2024-10-14 15:03] VITALS: BP 127/77; PULSE 80; RESP 18; TEMP 36.8; O2SAT 94
== END 2024-10-14 15:13 | disposition home or self-care (01) ==
PROVIDERS: Emergency Provider Emergency Medicine; PCP Family Medicine
DX: K04.7 Periapical abscess without sinus (principal); L03.211 Cellulitis of face; K51.90 Ulcerative colitis, unspecified, without complications; E11.9 Type 2 diabetes mellitus without complications; Z79.84 Long term (current) use of oral hypoglycemic drugs; Z79.899 Other long term (current) drug therapy
CPT/HCPCS: 36415; 70491; 80048; 85025; 96365; 96375; 99283; 99284; 99285; J0736; J1885; Q9967